=== PATIENT | female | born 1965 | race Caucasian/White ===

== ENCOUNTER 2018-01-14 13:04 | Emergency (ER) | payer OTHER ==
[2018-01-14 13:45] VITALS: TEMP 97.5
[2018-01-14] MEDS ORDERED: METOCLOPRAMIDE 10 MG TAB PO STA (14:58)
[2018-01-14] MEDS ORDERED: MECLIZINE 12.5 MG TAB PO STA (14:58)
--- NOTE | 2018-01-14 15:01 | ED ---
General Adult HPI - General Chief complaint: Dizziness Stated complaint: dizziness Time Seen by Provider: 01/14/18 14:41 Source: patient, RN notes reviewed Mode of arrival: ambulatory Limitations: no limitations - History of Present Illness Initial comments: Patient is a pleasant 52-year-old female presenting to the emergency department with dizziness. Dizziness is described as spinning type sensation. Patient had sudden onset last night. Symptoms improved while lying down in bed however when she got up to use the restroom symptoms return. Symptoms were present again this morning when she got up. Patient then vomited and symptoms are essentially resolved since that time. Patient only has minimal lightheadedness at this time. Patient denies ever having any headache at all. No history of similar symptoms previously. No confusion or speech problems. No weakness. No sinus or ear problems. - Related Data Home Medications Medication Instructions Recorded Confirmed Clopidogrel [Plavix] 75 mg PO DAILY 12/06/14 01/14/18 Aspirin 81 mg PO HS 05/01/15 01/14/18 Ascorbic Acid [Vitamin C] 500 mg PO DAILY 01/14/18 01/14/18 Ergocalciferol (Vitamin D2) 50,000 unit PO Q30D 01/14/18 01/14/18 [Vitamin D2] Losartan Potassium [Cozaar] 25 mg PO DAILY 01/14/18 01/14/18 Metoprolol Tartrate [Lopressor] 12.5 mg PO BID 01/14/18 01/14/18 Previous Rx's Medication Instructions Recorded Meclizine [Antivert] 25 mg PO TID PRN #12 tab 01/14/18 Metoclopramide HCl [Reglan] 10 mg PO Q6HR PRN #15 tablet 01/14/18 Allergies Allergy/AdvReac Type Severity Reaction Status Date / Time No Known Allergies Allergy Verified 01/14/18 15:00 Review of Systems ROS Statement: Those systems with pertinent positive or pertinent negative responses have been documented in the HPI. ROS Other: All systems not noted in ROS Statement are negative. Constitutional: Denies: fever Eyes: Denies: eye pain ENT: Denies: ear pain Respiratory: Denies: cough Cardiovascular: Denies: chest pain Endocrine: Denies: fatigue Gastrointestinal: Reports: nausea Genitourinary: Denies: dysuria Musculoskeletal: Denies: back pain Skin: Denies: rash Neurological: Reports: vertigo. Denies: headache, weakness, numbness, paresthesias, confusion Past Medical History Past Medical History: Coronary Artery Disease (CAD), Myocardial Infarction (DC) Additional Past Medical History / Comment(s): arthritis in knees- History of Any Multi-Drug Resistant Organisms: None Reported Past Surgical History: Appendectomy, Cholecystectomy, Heart Catheterization With Stent, Orthopedic Surgery, Tubal Ligation Additional Past Surgical History / Comment(s): chetna knee arthrocopy,uterine ablation Past Psychological History: No Psychological Hx Reported Smoking Status: Never smoker Past Alcohol Use History: None Reported Past Drug Use History: None Reported - Past Family History Father Additional Family Medical History / Comment(s): MOUTH Mother Additional Family Medical History / Comment(s): LUNG General Exam Limitations: no limitations General appearance: alert, in no apparent distress Head exam: Present: atraumatic Eye exam: Present: normal appearance, PERRL, EOMI. Absent: nystagmus ENT exam: Present: normal oropharynx, TM's normal bilaterally Neck exam: Present: normal inspection Respiratory exam: Present: normal lung sounds bilaterally Cardiovascular Exam: Present: regular rate, normal rhythm GI/Abdominal exam: Present: soft. Absent: tenderness Extremities exam: Present: other (Right proximal lateral calf with small area of swelling and firmness consistent with superficial thrombosis) Neurological exam: Present: alert, oriented X3, CN II-XII intact. Absent: motor sensory deficit Expanded Neurological exam: Present: protecting the airway Speech: Present: fluid speech Cranial nerves: EOM's Intact: Normal, Facial Sensation: Normal Cerebellar function: Finger to Nose: Normal Sensory exam: Upper Extremity Light Touch: Normal, Lower Extremity Light Touch: Normal Motor strength exam: RUE: 5, LUE: 5, RLE: 5, LLE: 5 Eye Response: (4) open spontaneously Motor Response: (6) obeys commands Verbal Response: (5) oriented Psychiatric exam: Present: normal affect, normal mood Skin exam: Present: normal color Course Vital Signs 01/14/18 13:41 Temperature 97.5 F L Pulse Rate 78 Respiratory 18 Rate Blood Pressure 125/67 O2 Sat by Pulse 98 Oximetry EKG Findings - EKG Comments: EKG Findings:: Normal sinus rhythm at 65. NH 150. QRS 84. QT 418. QTC 434. Normal axis. Normal QRS. No acute ST change. Medical Decision Making - Medical Decision Making Patient reevaluated and resting comfortably in bed. plaints at this time. Patient is updated on results and need for follow-up. Also updated on need for repeat ultrasound. - Radiology Data Radiology results: image reviewed (Computed tomography scan of the brain shows no acute process. Ultrasound negative for DVT, likely hematoma is present.) Disposition Clinical Impression: Vertigo Disposition: HOME SELF-CARE Condition: Stable Instructions: Dizziness (ED) Additional Instructions: Please follow-up with your doctor in the next day or 2 for recheck. Have your doctor review report today and U will need to repeat ultrasound in the future. Return for weakness, confusion, speech problems, increased dizziness, worsening symptoms or other concerns. [id number] Antivert as needed. Prescriptions: Meclizine [Antivert] 25 mg PO TID PRN #12 tab PRN Reason: dizziness Metoclopramide HCl [Reglan] 10 mg PO Q6HR PRN #15 tablet PRN Reason: Nausea Referrals: Meño Mcgarry DO [Primary Care Provider] - 1-2 days Time of Disposition: 17:35
--- NOTE | 2018-01-14 16:10 | CT ---
EXAMINATION TYPE: CT brain wo con DATE OF EXAM: 01/14/2018 COMPARISON: NONE HISTORY: Patient complains of dizziness, nausea, and vomiting. CT DLP: 780.2 mGycm. Automated Exposure Control for Dose Reduction was Utilized. TECHNIQUE: CT scan of the head is performed without contrast. FINDINGS: There is no acute intracranial hemorrhage, mass effect, or midline shift identified. No suspicious extra-axial fluid collection. The ventricles and sulci are within normal limits in size. The globes are intact and the visualized sinuses are clear. Frontal sinuses are noted to be hypoplast ic. IMPRESSION: No acute intracranial hemorrhage, mass effect, or midline shift is seen.
--- NOTE | 2018-01-14 16:42 | US ---
EXAMINATION TYPE: US venous doppler duplex LE RT DATE OF EXAM: 01/14/2018 4:23 PM COMPARISON: NONE CLINICAL HISTORY: Pain. SIDE PERFORMED: Right TECHNIQUE: The lower extremity deep venous system is examined utilizing real time linear array sonog marium with graded compression, doppler sonography and color-flow sonography. VESSELS IMAGED: External Iliac Vein (EIV) Common Femoral Vein Deep Femoral Vein Greater Saphenous Vein * Femoral Vein Popliteal Vein Small Saphenous Vein * Proximal Calf Veins (* superficial vessels) Right Leg: Negative for DVT At right pop fossa is a 1.0 x 0.5 cm avascular, hypoechoic ovoid structure. It is quite lateral and d oes not the typical appearance or location of a Bakers cyst. The area is palpable and looks like a br uise on the surface. Grayscale, color doppler, spectral doppler imaging performed of the deep veins of the lower extremiti es. There is normal flow, compressibility, vascular waveforms. IMPRESSION: 1. No evidence of deep venous arthrosis within the right lower extremity. 2. Hypoechoic avascular area deep to a ecchymosis within the popliteal fossa. This likely represents a hematoma, however short-term follow-up is recommended in 6 weeks to ensure resolution.
[2018-01-14 17:52] VITALS: BP 104/65; PULSE 88; RESP 16
== END 2018-01-14 17:51 | disposition home or self-care (01) ==
LOC: EC 13:04
DX: R42 Dizziness and giddiness (principal); M79.89 Other specified soft tissue disorders; I25.10 Atherosclerotic heart disease of native coronary artery without angina pectoris; M17.0 Bilateral primary osteoarthritis of knee; I25.2 Old myocardial infarction; Z79.02 Long term (current) use of antithrombotics/antiplatelets; Z79.82 Long term (current) use of aspirin; Z79.899 Other long term (current) drug therapy
CPT/HCPCS: 70450; 93005; 99284

== ENCOUNTER → 2018-03-15 | Outpatient (CLI) | payer OTHER ==
[2018-03-15 08:10] LABS: HCT 40.9 % (34.0-46.0); HGB 13.5 gm/dL (11.4-16.0); MCH 28.1 pg (25.0-35.0); MCV 85.1 fL (80.0-100.0); Mean Platelet Volume 8.3; Platelet Count 201 k/uL (150-450); RBC 4.81 m/uL (3.80-5.40); RDW 14.6 % (11.5-15.5); WBC 5.9 k/uL (3.8-10.6)
[2018-03-15 08:17] LABS: Appearance,Urine Cloudy (Clear); Bacteria,Urine Rare /hpf; Bilirubin,Urine Negative (Negative); Blood,Urine Negative (Negative); Color,Urine Yellow; Glucose,Urine (UA) Negative (Negative); Hyaline Casts,Urine 1 /lpf (0-2); Ketones,Urine 2+ (Negative); Leukocyte Esterase,Urine Large (Negative); Mucus,Urine Rare /hpf; Nitrite,Urine Negative (Negative); Protein,Urine Negative (Negative); Prothrombin Time 9.7 sec (9.0-12.0); RBC,Urine 3 /hpf (0-5); Specific Gravity,Urine 1.019 (1.001-1.035); Squamous Epithelial Cell,Urine 7 /hpf (0-4); Urobilinogen,Urine <2.0 mg/dL (<2.0); WBC,Urine 24 /hpf (0-5)
[2018-03-15 08:18] LABS: Partial Thromboplastin Time 23.8 sec (22.0-30.0)
[2018-03-15 08:32] LABS: ALT 39 U/L (9-52); AST 19 U/L (14-36); Albumin 4.3 g/dL (3.5-5.0); Alkaline Phosphatase 64 U/L (38-126); Anion Gap 15 mmol/L; Blood Urea Nitrogen 14 mg/dL (7-17); Calcium 9.6 mg/dL (8.4-10.2); Carbon Dioxide 26 mmol/L (22-30); Chloride 103 mmol/L (98-107); Glucose 142 mg/dL (74-99); Potassium 4.1 mmol/L (3.5-5.1); Sodium 144 mmol/L (137-145); Total Bilirubin 0.4 mg/dL (0.2-1.3); Total Protein 6.9 g/dL (6.3-8.2)
== END ==
LOC: LABWHC1 07:33
PROVIDERS: ATTEND Orthopaedic Surgery
DX: Z01.812 Encounter for preprocedural laboratory examination (principal)
CPT/HCPCS: 36415; 80053; 81001; 85027; 85610; 85730; 87070

== ENCOUNTER → 2018-12-23 | Outpatient (CLI) | payer OTHER | END | disposition home or self-care (01) | LOC: LABPAT 09:38 | PROVIDERS: ATTEND Obstetrics & Gynecology | DX: Z53.9 Procedure and treatment not carried out, unspecified reason (principal) ==

== ENCOUNTER 2019-05-02 05:43 | Inpatient (IN) | payer OTHER ==
[2019-04-20 10:52] VITALS: BMI 30.1
[~2019-05-02 05:43] MED LIST: DEXAMETHASONE SOD PHOSPHATE 10 MG/ML 1 ML VIAL IV ONE; LACTATED RINGERS 1,000 ML IV SCH; LIDOCAINE 1% 20 ML VIAL (10MG/ML) FOR IV START INTRADERMA PRN; ONDANSETRON 4 MG/2 ML VIAL IVP ONE; ceFAZolin IN SWFI 2 GM/20 ML SYRINGE IVP ONE
[2019-05-02 06:11] LABS: Glucose,Whole Blood 94 mg/dL (75-99)
[2019-05-02] MEDS ORDERED: LACTATED RINGERS 1,000 ML IV ONE ×2 (06:12→06:13)
--- NOTE | 2019-05-02 06:46 | P.HPOB ---
History of Present Illness H&P Date: 05/02/19 Chief Complaint: pelvic organ prolapse 53 year old presents for total laparoscopic hysterectomy bilateral salpingo-oophorectomy with da Edward and anterior/posterior repair. Review of Systems All systems: negative Constitutional: Denies chills, Denies fever Eyes: denies blurred vision, denies pain Ears, nose, mouth and throat: Denies headache, Denies sore throat Cardiovascular: Denies chest pain, Denies shortness of breath Respiratory: Denies cough Gastrointestinal: Denies abdominal pain, Denies diarrhea, Denies nausea, Denies vomiting Genitourinary: Denies dysuria, Denies hematuria Musculoskeletal: Denies myalgias Integumentary: Denies pruritus, Denies rash Neurological: Denies numbness, Denies weakness Psychiatric: Denies anxiety, Denies depression Endocrine: Denies fatigue, Denies weight change Past Medical History Past Medical History: Coronary Artery Disease (CAD), Cancer, Diabetes Mellitus, Myocardial Infarction (CT), Osteoarthritis (OA) Additional Past Medical History / Comment(s): bladder prolapse,rt breast CA- received 33 radiation tx's-last radiation tx 04-06-2019-skin healed,hx arthritis chetna knees Last Myocardial Infarction Date:: 2009 History of Any Multi-Drug Resistant Organisms: None Reported Past Surgical History: Appendectomy, Breast Surgery, Cholecystectomy, Heart Catheterization With Stent, Orthopedic Surgery, Tubal Ligation, Uterine Ablation Additional Past Surgical History / Comment(s): rt knee replacement,chetna knee arthroscopy,lumpectomy with 2-3 lymphnodes removed rt breast Past Anesthesia/Blood Transfusion Reactions: No Reported Reaction Date of Last Stent Placement:: 2009 Smoking Status: Never smoker - Past Family History Brother(s) History Unknown: Yes (Thyroid and hyperlipidemia) Family Medical History: Hypertension Sister(s) History Unknown: Yes Father Family Medical History: Cancer (Oral) Additional Family Medical History / Comment(s): MOUTH Mother Family Medical History: Cancer Additional Family Medical History / Comment(s): LUNG Medications and Allergies Home Medications Medication Instructions Recorded Confirmed Type Ergocalciferol (Vitamin D2) 50,000 unit PO Q7D 01/14/18 05/02/19 History [Vitamin D2] Aspirin 81 mg PO HS #0 03/30/18 05/02/19 Rx Anastrozole [Arimidex] 1 mg PO DAILY 04/20/19 05/02/19 History Dandelion Root 4 cap PO DAILY 04/20/19 05/02/19 History Allergies Allergy/AdvReac Type Severity Reaction Status Date / Time No Known Allergies Allergy Verified 05/02/19 06:04 Exam Osteopathic Statement: *. No significant issues noted on an osteopathic structural exam other than those noted in the History and Physical/Consult. Vital Signs Temp Pulse Resp BP Pulse Ox 05/02/19 06:06 97.2 F L 74 17 146/67 99 Intake and Output 05/01/19 05/01/19 05/02/19 14:59 22:59 06:59 Other: Weight 97.8 kg Heart: Regular rate and rhythm Lungs: Clear to auscultation bilaterally Abdomen: Soft, nontender Extremities: Negative Homans sign Assessment and Plan (1) Pelvic organ prolapse quantification stage 2 cystocele Current Visit: Yes Status: Acute Code(s): N81.10 - CYSTOCELE, UNSPECIFIED SNOMED Code(s): 820577015 Plan: 1. [facility] BSO with da edward, cystocele and rectocele repair, and diagnostic cystoscopy
[2019-05-02] MEDS ORDERED: MIDAZOLAM 2 MG/2 ML VIAL ONE (07:26)
[2019-05-02] MEDS ORDERED: ROCURONIUM BROMIDE 10 MG/ML 10 ML VIAL IV ONE (07:26)
[2019-05-02] MEDS ORDERED: fentaNYL (PF) 50 MCG/ML 2 ML AMP ONE (07:26)
[2019-05-02] MEDS ORDERED: NEOSTIGMINE 1 MG/ML 10 ML VIAL ONE (07:26)
[2019-05-02] MEDS ORDERED: GLYCOPYRROLATE 0.2 MG/ML 2 ML VIAL ONE (07:26)
[2019-05-02] MEDS ORDERED: PROPOFOL 10 MG/ML 20 ML VIAL IV ONE (07:26)
[2019-05-02] MEDS ORDERED: LIDOCAINE 1% INJ 10MG/ML (20 ML MDV) ONE (07:26)
[2019-05-02] MEDS ORDERED: SUCCINYLCHOLINE CHLORIDE 100 MG/5 ML SYR IV ONE (07:26)
[2019-05-02] MEDS ORDERED: BUPIVACAINE (PF) 0.25% 30 ML VIAL SQ ONE (08:31)
[2019-05-02] MEDS ORDERED: VASOPRESSIN 20 UNIT/ML 1 ML VIAL IM ONE (08:41)
--- NOTE | 2019-05-02 09:38 | P.OP ---
Date of Procedure: 05/02/19 Preoperative Diagnosis: 1. Pelvic organ prolapse with grade 2 cystocele, rectocele Postoperative Diagnosis: 1. Pelvic organ prolapse with grade 2 cystocele, rectocele Procedure(s) Performed: Total laparoscopic hysterectomy, bilateral salpingo-oophorectomy with da Laureano, anterior and posterior repair, diagnostic cystoscopy Anesthesia: JD Surgeon: Sharon Louie Binding Machine Operator #1: Isaac Mendoza Estimated Blood Loss (ml): 20 IV fluids (ml): 800 Urine output (ml): 1,100 Pathology: other (Uterus with cervix, fallopian tubes, ovaries, vaginal mucosa) Condition: stable Disposition: PACU Operative Findings: There was a simple cyst on the left ovary, normal-appearing uterus and fallopian tubes, uterine descensus with grade 2 cystocele and grade 2 rectocele. Description of Procedure: Patient taken the operating room where general anesthesia was obtained without difficulty. She is prepped and draped in normal sterile fashion dorsal lithotomy position, legs placed in the Reynaldo stirrups. Weighted speculum placed in the vagina and the anterior lip the cervix was grasped with single-tooth tenaculum. The uterus sounded to 6 cm and the cervix diameter was 3.5 cm. The appropriate manipulator tip and ring were placed on the Bre manipulator. The Bre manipulator was then placed in the uterus. Lira catheter was also placed. Attention was then turned to the abdomen and gloves were changed. A 5 mm supraumbilical incision was made the scalpel and a 5 mm optical trocar was placed under direct visualization. 10 cm to the right of this and 2 cm down a 5 mm incision was made and 8 mm da Laureano port was placed under direct visualization. Same measurements on the opposite side of the patient's abdomen, the 5 mm incision was made and 8 mm da Laureano port was placed under direct visualization. In the left upper quadrant a 10 mm incision was made and a 10 mm optical trocar was placed under direct visualization. The 5 mm optical trocar was then replaced with the 8 mm da Laureano camera port. The robot was docked on patient's right side. The camera was introduced and then the monopolar curved scissor and [place] bipolar placed under direct visualization. I broke scrub and went to the physician console. The left infundibulopelvic ligament was cauterized with the [place] bipolar and cut with monopolar curved scissors. The left round ligament was cauterized with the [place] bipolar and cut with monopolar curved scissors. The posterior leaf of the broad ligament was taken down using the monopolar curved scissors. Anterior leaf of the broad ligament was then taken down using the monopolar curved scissors. The uterine artery was cauterized with the [place] bipolar and cut with monopolar curved scissors. The bladder flap was then started using the monopolar curved scissors. Attention was then turned to the right side of the patient's anatomy and the right infundibular pelvic ligament was cauterized with the [place] bipolar and cut with monopolar curved scissors. The right round ligament was cauterized with the [place] bipolar and cut with monopolar curved scissors. Posterior leaf of the broad ligament was taken down using the monopolar curved scissors and the anterior leaf was taken down using the monopolar curved scissors. The uterine artery was cauterized the [place] bipolar cut with monopolar curved scissors. The bladder flap was then finished on this side. Anterior colpotomy was made using the monopolar curved scissors. The rest of the uterus was from the vaginal cuff by following the ring around with the monopolar curved scissors through the uterosacral ligaments back to the anterior portion. Once the uterus and cervix were amputated they were pulled through the vaginal cuff. Hemostasis was assured. The instruments were changed for the Cardier forcep and the chalo suture cut. The vaginal cuff was then closed using O stratafix barbed suture in a running fashion. Hemostasis was again assured and the pelvis was irrigated. All instruments were removed from the abdomen and the robot was undocked. The abdominal incisions were closed with 4-0 Vicryl in a subcuticular fashion. I scrubbed back in to perform the anterior posterior repair. First the anterior mucosa was grasped with Allis clamps and the mucosa was infiltrated with diluted vasopressin. An incision was made and the underlying fascia was dissected off the vaginal mucosa. Linda plication stitches were placed. The excess vaginal mucosa was trimmed and then closed with 0 Vicryl in a running locked fashion. Hemostasis was assured. The posterior vaginal mucosa was grasped with Allis clamps and this mucosa was infiltrated with diluted vasopressin. An incision was made and the underlying fascia was dissected off the posterior vaginal mucosa. Linda plication stitches were placed. The perineal body was built up with 2 stitches. The excess vaginal mucosa was trimmed and then closed with 0 Vicryl in a running locked fashion. Excellent hemostasis was seen. I then performed a cystoscopy and saw ureteral jets from both orifices. Patient tolerated the procedure well, sponge and instrument counts correct 2 and she was taken to recovery room in stable condition condition
[2019-05-02] MEDS: HYDROmorphone 1 MG/ML 1 ML SYRINGE IVP ONE ×2 (10:03→10:12)
[2019-05-02] MEDS ORDERED: KETOROLAC 30 MG/ML 1 ML VIAL IVP ONE (10:12)
[2019-05-02] MEDS ORDERED: SIMETHICONE 80 MG CHEWABLE PO PRN (10:55)
[2019-05-02] MEDS ORDERED: Acetaminophen-Codeine 300-30mg TAB PO PRN ×2 (10:55)
[2019-05-02] MEDS ORDERED: IBUPROFEN 600 MG TAB PO PRN (10:55)
[2019-05-02] MEDS ORDERED: ZOLPIDEM 5 MG TAB PO PRN (10:55)
[2019-05-02] MEDS ORDERED: ONDANSETRON 4 MG/2 ML VIAL IVP PRN (10:55)
[2019-05-02] MEDS ORDERED: METOCLOPRAMIDE 5 MG/ML 2 ML VIAL IVP PRN (10:55)
--- NOTE | 2019-05-02 13:54 | P.PN ---
Progress Note - Text Progress Note Date: 05/02/19 53 years old female, that's post robotic hysterectomy under general endotracheal anesthesia, patient postop was complaining of right side pain, and increased teares, there is no redness, no discharge, clinical exam, fit the criteria for corneal abrasion, Voltaren 1% eye drops, one drop every 6 hours ordered, and we will consult ophthalmology for further recommendation.
[2019-05-02] MEDS: DICLOFENAC 0.1% OPHTH SOLN 2.5 ML BTL RIGHT EYE SCH ×3 (14:37→22:32)
[2019-05-02] MEDS: ERYTHROMYCIN 5 MG/GM OPHTH OINT 3.5 GM TUBE RIGHT EYE SCH (15:07)
[2019-05-02] MEDS ORDERED: HEPARIN SODIUM,PORCINE 5,000 UNIT/ML 1 ML VIAL SQ SCH (16:00)
[2019-05-02] MEDS: KETOROLAC 30 MG/ML 1 ML VIAL IVP PRN (17:55)
[2019-05-02] MEDS: SENNOSIDES-DOCUSATE SODIUM 1 EACH TAB PO SCH (20:35)
[2019-05-02] MEDS ORDERED: ANASTROZOLE 1 MG TAB PO SCH (21:00)
[2019-05-03] MEDS: ERYTHROMYCIN 5 MG/GM OPHTH OINT 3.5 GM TUBE RIGHT EYE SCH ×2 (00:01→07:24)
[2019-05-03 07:12] LABS: Basophils % (A) 0 %; Eosinophils # (A) 0.1 k/uL (0-0.7); Eosinophils % (A) 2 %; HCT 34.5 % (34.0-46.0); HGB 11.2 gm/dL (11.4-16.0); Lymphocytes # (A) 1.2 k/uL (1.0-4.8); Lymphocytes % (A) 23 %; MCH 28.9 pg (25.0-35.0); MCHC 32.5 g/dL (31.0-37.0); MCV 88.9 fL (80.0-100.0); Mean Platelet Volume 7.8; Monocytes # (A) 0.3 k/uL (0-1.0); Monocytes % (A) 5 %; Neutrophils # (A) 3.4 k/uL (1.3-7.7); Neutrophils % (A) 68 %; Platelet Count 146 k/uL (150-450); RBC 3.89 m/uL (3.80-5.40); RDW 14.1 % (11.5-15.5)
[2019-05-03] MEDS: SENNOSIDES-DOCUSATE SODIUM 1 EACH TAB PO SCH (07:22)
[2019-05-03] MEDS: KETOROLAC 30 MG/ML 1 ML VIAL IVP PRN ×2 (07:23)
[2019-05-03] MEDS: DICLOFENAC 0.1% OPHTH SOLN 2.5 ML BTL RIGHT EYE SCH ×2 (08:28→14:01)
[2019-05-03 08:31] VITALS: BP 133/66; PULSE 71; RESP 18; TEMP 96.7
[2019-05-03] MEDS ORDERED: DANDELION ROOT PO SCH (09:00)
--- NOTE | 2019-05-04 08:03 | P.DS ---
Providers Date of admission: 05/02/19 05:43 Expected date of discharge: 05/04/19 Attending physician: Sharon Louie Consults: 05/02/19 13:46 Consult Physician Routine Consulting Provider: Dheeraj Wu Consult Reason/Comments: corneal abrasion Do you want consulting provider notified?: Yes Primary care physician: Meño Mcgarry - Discharge Diagnosis(es) (1) Pelvic organ prolapse quantification stage 2 cystocele Status: Acute (2) Status post robot-assisted surgical procedure Status: Acute Hospital Course: Patient presented for TLHBSO and anterior posterior repair. She underwent this procedure using da Laureano without complications. Postoperatively she was having some pain in the right eye and initially thought there was something in her eye. It's possible that she does have a small corneal abrasion. She is placed on erythromycin eyedrops and though ophthalmology was consult tented, they were going to be here for over 24 hours and she was ready to be discharged. She'll follow-up with ophthalmology outpatient. Her pain is well-controlled, she is voiding and ambulating without difficulty, passing flatus and tolerating regular diet. Her incisions are clean, dry, intact. She will be discharged home postoperative day #1 to follow-up with me in 3 weeks. Patient Condition at Discharge: Good Plan - Discharge Summary Discharge Rx Participant: Yes New Discharge Prescriptions: New Ibuprofen [Motrin] 600 mg PO Q6HR PRN #30 tab PRN Reason: Mild Discomfort Acetaminophen-Codeine 300-30mg [Tylenol w/codeine #3] 1 - 2 each PO Q6HR PRN #20 tab PRN Reason: Severe Pain No Action Ergocalciferol (Vitamin D2) [Vitamin D2] 50,000 unit PO Q7D Aspirin 81 mg PO HS #0 Anastrozole [Arimidex] 1 mg PO DAILY Dandelion Root 4 cap PO DAILY Discharge Medication List Ergocalciferol (Vitamin D2) [Vitamin D2] 50,000 unit PO Q7D 01/14/18 [History] Aspirin 81 mg PO HS #0 03/30/18 [Rx] Anastrozole [Arimidex] 1 mg PO DAILY 04/20/19 [History] Dandelion Root 4 cap PO DAILY 04/20/19 [History] Acetaminophen-Codeine 300-30mg [Tylenol w/codeine #3] 1 - 2 each PO Q6HR PRN #20 tab 05/03/19 [Rx] Ibuprofen [Motrin] 600 mg PO Q6HR PRN #30 tab 05/03/19 [Rx] Follow up Appointment(s)/Referral(s): Sharon Louie DO [Doctor of Osteopathic Medicine] - 3 Weeks Discharge Disposition: HOME SELF-CARE
[2019-05-04] MEDS ORDERED: ERGOCALCIFEROL 50,000 UNIT CAP PO SCH (09:00)
== END 2019-05-03 14:45 | disposition home or self-care (01) | DRG 743 ==
LOC: 2ORMAIN 05:43 → 4FBP 09:37
PROVIDERS: ADMIT Obstetrics & Gynecology; ATTEND Obstetrics & Gynecology
PROC: 0UT24ZZ Resection of Bilateral Ovaries, Percutaneous Endoscopic Approach (ICD-10-PCS; 2019-05-02)
PROC: 0JQC0ZZ Repair Pelvic Region Subcutaneous Tissue and Fascia, Open Approach (ICD-10-PCS; 2019-05-02)
PROC: 8E0W4CZ Robotic Assisted Procedure of Trunk Region, Percutaneous Endoscopic Approach (ICD-10-PCS; 2019-05-02)
PROC: 0TJB8ZZ Inspection of Bladder, Via Natural or Artificial Opening Endoscopic (ICD-10-PCS; 2019-05-02)
PROC: 0UT94ZZ Resection of Uterus, Percutaneous Endoscopic Approach (ICD-10-PCS; principal; 2019-05-02 07:15)
PROC: 0UTC4ZZ Resection of Cervix, Percutaneous Endoscopic Approach (ICD-10-PCS; 2019-05-02 07:15)
PROC: 0UT74ZZ Resection of Bilateral Fallopian Tubes, Percutaneous Endoscopic Approach (ICD-10-PCS; 2019-05-02 07:15)
DX: N81.2 Incomplete uterovaginal prolapse (principal); E11.9 Type 2 diabetes mellitus without complications; N83.292 Other ovarian cyst, left side; S05.00XA Injury of conjunctiva and corneal abrasion without foreign body, unspecified eye, initial encounter; I25.10 Atherosclerotic heart disease of native coronary artery without angina pectoris; I25.2 Old myocardial infarction; M19.90 Unspecified osteoarthritis, unspecified site; Z79.811 Long term (current) use of aromatase inhibitors; Z79.82 Long term (current) use of aspirin; Z79.899 Other long term (current) drug therapy; Z85.3 Personal history of malignant neoplasm of breast; Z96.651 Presence of right artificial knee joint; Z92.3 Personal history of irradiation; Z90.49 Acquired absence of other specified parts of digestive tract; Z95.5 Presence of coronary angioplasty implant and graft; Z98.51 Tubal ligation status; Z82.49 Family history of ischemic heart disease and other diseases of the circulatory system; Z83.49 Family history of other endocrine, nutritional and metabolic diseases; Z80.8 Family history of malignant neoplasm of other organs or systems; Z80.1 Family history of malignant neoplasm of trachea, bronchus and lung
CPT/HCPCS: 85025; 86850; 86900; 86901; 88302; 88307

== ENCOUNTER → 2019-08-03 | Outpatient (CLI) | payer OTHER ==
[2019-08-03 19:38] LABS: ALT 15 U/L (8-44); AST 19 U/L (13-35); Chol/HDL Ratio 2.25; Cholesterol 146 mg/dL (0-200); Triglycerides <50.0 mg/dL (0.0-149.0)
== END | disposition home or self-care (01) ==
LOC: LABWHC1 11:25
PROVIDERS: ATTEND Internal Medicine Cardiovascular Disease
DX: E78.2 Mixed hyperlipidemia (principal)
CPT/HCPCS: 36415; 80061; 84450; 84460

== ENCOUNTER → 2020-04-20 | Outpatient (CLI) | payer OTHER ==
[2020-04-20 12:45] LABS: Basophils # (A) 0.1 k/uL (0-0.2); Basophils % (A) 1 %; Eosinophils # (A) 0.2 k/uL (0-0.7); Eosinophils % (A) 3 %; HCT 40.8 % (34.0-46.0); HGB 13.1 gm/dL (11.4-16.0); Lymphocytes # (A) 1.3 k/uL (1.0-4.8); Lymphocytes % (A) 20 %; MCH 27.7 pg (25.0-35.0); MCHC 32.1 g/dL (31.0-37.0); MCV 86.3 fL (80.0-100.0); Mean Platelet Volume 8.1; Monocytes # (A) 0.2 k/uL (0-1.0); Monocytes % (A) 4 %; Neutrophils # (A) 4.4 k/uL (1.3-7.7); Neutrophils % (A) 71 %; Platelet Count 201 k/uL (150-450); RBC 4.73 m/uL (3.80-5.40); RDW 14.1 % (11.5-15.5); WBC 6.2 k/uL (3.8-10.6)
[2020-04-20 19:22] LABS: African American GFR (CKD) 112.3 (60.0-200.0); Albumin 4.6 g/dL (3.80-4.90); Anion Gap 8.5 mmol/L (4.00-12.00); Calcium 9.7 mg/dL (8.7-10.3); Carbon Dioxide 27.5 mmol/L (21.6-31.8); Non-African American GFR(CKD) 96.9 (60.0-200.0); Potassium 4.1 mmol/L (3.5-5.5)
[2020-04-20 21:19] LABS: Hemoglobin A1C 5.5 % (4.0-6.0)
== END | disposition home or self-care (01) ==
LOC: LABWHC1 11:56
PROVIDERS: ATTEND Orthopaedic Surgery
DX: Z01.89 Encounter for other specified special examinations (principal)
CPT/HCPCS: 36415; 80048; 82040; 82306; 82985; 83036; 84134; 84466; 85025; 86850; 86900; 86901; 87070

== ENCOUNTER → 2020-04-30 | Outpatient (CLI) | payer OTHER ==
--- NOTE | 2020-04-30 14:36 | XR ---
Left hip HISTORY: Left hip pain 2 views the left hip There are small ossific densities at the level of the acetabular labrum which may represent chondroca lcinosis, possible unfused apophysis, remote injury. Joint spaces and alignment are maintained. No ac tanana fracture or dislocation is evident. Bone mineralization is also maintained. IMPRESSION: Findings of the labrum as described. No acute finding evident. Hip MRI may be of benefit.
--- NOTE | 2020-04-30 14:37 | XR ---
Left shoulder HISTORY: Left shoulder pain 3 views of the left shoulder Bone mineralization, joint spaces and alignment are maintained. Left lung apex as visualized is danial l. Calcification present at the level of the humeral head may be within the rotator cuff tendon. Ther e are overlying artifacts. No fracture or dislocation. IMPRESSION: There may be calcific tendinitis.
== END | disposition home or self-care (01) ==
LOC: RADXRMAIN 13:21
PROVIDERS: ATTEND Family Medicine
DX: M25.512 Pain in left shoulder (principal); M25.552 Pain in left hip
CPT/HCPCS: 73502

== ENCOUNTER → 2020-08-28 | Outpatient (CLI) | payer OTHER | END | disposition home or self-care (01) | LOC: LABWHC1 08:35 | PROVIDERS: ATTEND Orthopaedic Surgery | DX: T56.91XA Toxic effect of unspecified metal, accidental (unintentional), initial encounter (principal); M25.561 Pain in right knee | CPT/HCPCS: 36415; 85652; 86140 ==

== ENCOUNTER → 2020-10-12 | Outpatient (CLI) | payer OTHER ==
--- NOTE | 2020-10-12 15:13 | XR ---
EXAMINATION TYPE: XR chest 2V DATE OF EXAM: 10/12/2020 COMPARISON: 08/23/2012 HISTORY: Shortness of breath TECHNIQUE: Frontal and lateral views of the chest are obtained. FINDINGS: Scattered senescent parenchymal changes noted. Hyperinflation compatible with COPD. No evidence for infiltrate. No evidence for atelectasis. Heart size is stable. Mediastinal structures are stable and grossly unremarkable. No evidence for hilar prominence. Degenerative changes dorsal spine. IMPRESSION: 1. No evidence for acute pulmonary disease.
--- NOTE | 2020-10-12 15:15 | XR ---
EXAMINATION TYPE: XR abdomen 1V DATE OF EXAM: 10/12/2020 COMPARISON: NONE HISTORY: Pain TECHNIQUE: Single supine KUB image of the abdomen is obtained FINDINGS: Small bowel demonstrates no evidence for dilatation or air fluid levels. Gas and fecal material is seen in non-distended colon. No convincing evidence for pneumoperitoneum. No unusual calcifications. The lung bases are clear. The osseous structures are intact. IMPRESSION: 1. Overall nonobstructive bowel gas pattern.
== END | disposition home or self-care (01) ==
LOC: RADXRMAIN 14:25
PROVIDERS: ATTEND Family Medicine
DX: R07.9 Chest pain, unspecified (principal); K59.00 Constipation, unspecified
CPT/HCPCS: 71046; 74018

== ENCOUNTER → 2020-12-03 | Outpatient (CLI) | payer OTHER ==
[2020-12-03 14:38] LABS: Basophils # (A) 0.05 X 10*3/uL (0.00-0.10); Eosinophils # (A) 0.13 X 10*3/uL (0.04-0.35); Eosinophils % (A) 2.6 %; HCT 39.6 % (37.2-46.3); HGB 12.7 g/dL (12.0-15.0); Lymphocytes # (A) 1.37 X 10*3/uL (0.90-5.00); MCH 27.6 pg (27.0-32.0); MCHC 32.1 g/dL (32.0-37.0); MCV 86.1 fL (80.0-97.0); Mean Platelet Volume 10.9 fL (9.5-12.2); Monocytes # (A) 0.29 X 10*3/uL (0.20-1.00); Monocytes % (A) 5.7 %; Neutrophils # (A) 3.22 X 10*3/uL (1.80-7.70); Neutrophils % (A) 63.3 %; Platelet Count 229 X 10*3/uL (140-440); RDW 14.1 % (11.5-14.5); WBC 5.08 X 10*3/uL (4.50-10.00)
[2020-12-03 17:50] LABS: Hemoglobin A1C 6.6 % (4.0-6.0)
[2020-12-03 18:48] LABS: African American GFR (CKD) 111.5 (60.0-200.0); Albumin 4.8 g/dL (3.80-4.90); Anion Gap 10.1 mmol/L (4.00-12.00); BUN/Creat Ratio 17.14 Ratio (12.00-20.00); Calcium 9.1 mg/dL (8.7-10.3); Carbon Dioxide 22.9 mmol/L (21.6-31.8); Non-African American GFR(CKD) 96.2 (60.0-200.0); Potassium 4.2 mmol/L (3.5-5.5)
== END | disposition home or self-care (01) ==
LOC: LABWHC1 09:57
PROVIDERS: ATTEND Orthopaedic Surgery
DX: Z01.89 Encounter for other specified special examinations (principal)
CPT/HCPCS: 36415; 80048; 82040; 82306; 82985; 83036; 84134; 84466; 85025; 86850; 86900; 86901; 87070

== ENCOUNTER 2021-01-15 19:37 | Emergency (ER) | payer OTHER ==
[2021-01-15] MEDS ORDERED: IPRATROPIUM-ALBUTEROL 3 ML NEB INHALATION STA (20:45)
--- NOTE | 2021-01-15 21:03 | ED ---
SOB HPI - General Chief Complaint: Shortness of Breath Stated Complaint: COVID+,STEPHAN Time Seen by Provider: 01/15/21 20:33 Source: patient Mode of arrival: wheelchair Limitations: no limitations - History of Present Illness Initial Comments: Is a 55-year-old female who has a history of CAD, diabetes who presents emergency department for worsening shortness of breath. The patient developed symptoms of loss of taste and smell approximately one week ago. She was tested for cold that about 5 days ago and found to be Covid Positive. She states over the last couple of days she's had worsening of cough and shortness of breath especially with exertion. She denies any chest pain. No nausea or vomiting. No diarrhea. She states that she's had some chills at home. She came in today because she is states that she has a pulse ox at home and it showed 91% area the patient did have a right total knee arthroplasty performed about 2 weeks ago. She states that she's been doing well with this. She states that she has not had any pain or swelling of the lower extremities since that time. Again no chest pains. No other acute complaints. - Related Data Home Medications Medication Instructions Recorded Confirmed Ergocalciferol (Vitamin D2) 50,000 unit PO SA 01/14/18 01/15/21 [Vitamin D2] Anastrozole [Arimidex] 1 mg PO HS 04/20/19 01/15/21 Acetaminophen [Tylenol] 500 - 1,000 mg PO TID PRN 01/15/21 01/15/21 Docusate [Colace] 100 mg PO DAILY PRN 01/15/21 01/15/21 oxyCODONE HCL [OxyIR] 5 mg PO Q4H PRN 01/15/21 01/15/21 Previous Rx's Medication Instructions Recorded Aspirin 81 mg PO HS #0 03/30/18 Allergies Allergy/AdvReac Type Severity Reaction Status Date / Time No Known Allergies Allergy Verified 01/15/21 21:24 Review of Systems ROS Statement: Those systems with pertinent positive or pertinent negative responses have been documented in the HPI. ROS Other: All systems not noted in ROS Statement are negative. Past Medical History Past Medical History: Coronary Artery Disease (CAD), Cancer, Diabetes Mellitus, Myocardial Infarction ([place]), Osteoarthritis (OA) Additional Past Medical History / Comment(s): arthritis in knees- Last Myocardial Infarction Date:: 2009 History of Any Multi-Drug Resistant Organisms: None Reported Past Surgical History: Appendectomy, Cholecystectomy, Heart Catheterization With Stent, Orthopedic Surgery, Tubal Ligation Additional Past Surgical History / Comment(s): chetna knee arthrocopy,uterine ablation Past Anesthesia/Blood Transfusion Reactions: No Reported Reaction Date of Last Stent Placement:: 2009 Past Psychological History: No Psychological Hx Reported Smoking Status: Never smoker Past Alcohol Use History: None Reported Past Drug Use History: None Reported - Past Family History Brother(s) History Unknown: Yes (Thyroid and hyperlipidemia) Family Medical History: Hypertension Sister(s) History Unknown: Yes Father Family Medical History: Cancer (Oral) Additional Family Medical History / Comment(s): MOUTH Mother Family Medical History: Cancer Additional Family Medical History / Comment(s): LUNG General Exam - General Exam Comments Initial Comments: Constitutional: Awake alert Appears comfortable Head: Normocephalic atraumatic Eyes: no conjunctival injection No scleral icterus EOMI Neck: No JVD Supple Heart: Regular rate rhythm normal S1-S2 no murmurs Lungs: Tachypnea Clear to auscultation bilaterally No wheezing No rales Abdomen: Soft nondistended nontender Extremities: Non edematous DP pulses intact Radial pulses intact, surgical wound appears clean and dry without running erythema or swelling Neuro: A&Ox3 No focal neurologic deficits Psych: Appropriate mood and affect Limitations: no limitations Course Vital Signs 01/15/21 01/15/21 01/15/21 19:52 21:00 23:00 Temperature 98.1 F Pulse Rate 98 89 96 Respiratory 24 20 22 Rate Blood Pressure 128/76 132/65 128/69 O2 Sat by Pulse 96 97 98 Oximetry Medical Decision Making - Medical Decision Making Is a 55-year-old female presents emergency department for worsening shortness of breath and was Coban positive for the patient was ambulated and did not have any episodes of desaturation. Patient was offered family member may have therapy and she accepted. I told the patient to use inhalers at home. Monitor her oxygen saturation started breathing at home and return probably if she has any worsening or changing symptoms or all questions were answered. Disposition Clinical Impression: COVID-19 Disposition: HOME SELF-CARE Condition: Stable Instructions (If sedation given, give patient instructions): Coronavirus Disease 2019 (COVID-19) Is patient prescribed a controlled substance at d/c from ED?: No Referrals: Meño Mcgarry DO [Primary Care Provider] - 1-2 days
--- NOTE | 2021-01-15 21:37 | XR ---
EXAMINATION TYPE: XR chest 1V portable DATE OF EXAM: 01/15/2021 COMPARISON: 10/12/2020. HISTORY: Shortness of breath. TECHNIQUE: Single frontal view of the chest is obtained. FINDINGS: There is a mild to moderate bibasilar hazy and streaky opacities. No pleural effusion, or pneumothorax seen. The cardiac silhouette size is within normal limits. The osseous structures are intact. IMPRESSION: Bibasilar opacities, concerning for infiltrates.
[2021-01-15] MEDS ORDERED: BAMLANIVIMAB 700 MG in SODIUM CHLORIDE 0.9% 50 ML IVPB ONE (21:45)
[2021-01-15] MEDS ORDERED: ALBUTEROL HFA INHALER INHALATION STA (23:38)
[2021-01-16 00:43] VITALS: BP 127/63; PULSE 98; RESP 20; TEMP 99.9
== END 2021-01-16 00:44 | disposition home or self-care (01) ==
LOC: EC 19:37
DX: U07.1 COVID-19 (principal); I25.2 Old myocardial infarction; Z79.899 Other long term (current) drug therapy; Z85.9 Personal history of malignant neoplasm, unspecified; Z96.651 Presence of right artificial knee joint
CPT/HCPCS: 94640; 71045; 99285; 96365; Q0239

== ENCOUNTER → 2021-05-23 | Outpatient (CLI) | payer OTHER ==
--- NOTE | 2021-05-23 14:10 | CT ---
EXAMINATION TYPE: CT sinus wo con DATE OF EXAM: 05/23/2021 COMPARISON: None HISTORY: Congestion and facial pain. CT DLP: 641.6 mGycm CONTRAST: None The paranasal sinuses are examined in the axial plane at 2 mm thick sections. Reconstructed images i n the coronal plane were obtained. There is dental amalgam scatter artifact The maxillary sinuses are clear. The ethmoid air cells are clear. The sphenoid sinuses are clear. The frontal sinuses are clear. The septum is evaluated. There is septal deviation to the left. The ostiomeatal units are patent. Hyperostosis frontalis internus is present, normal variant. IMPRESSIONS: 1. No acute paranasal sinus abnormality. 2. Left septal deviation.
== END | disposition home or self-care (01) ==
LOC: RADCTMAIN 13:40
PROVIDERS: ATTEND Otolaryngology
DX: J34.2 Deviated nasal septum (principal)
CPT/HCPCS: 70486

== ENCOUNTER → 2023-02-09 | Outpatient (CLI) | payer OTHER ==
[2023-02-09 16:18] LABS: ALT 42 U/L (8-44); AST 21 U/L (13-35); Chol/HDL Ratio 3.48 Ratio; LDL Cholesterol,Calculated 104.9 mg/dL (0.0-131.0); VLDL Calculation 16.88 mg/dL (5.00-40.00)
== END | disposition home or self-care (01) ==
LOC: LABWHC1 08:48
PROVIDERS: ATTEND Nurse Practitioner Family
DX: E78.2 Mixed hyperlipidemia (principal)
CPT/HCPCS: 36415; 80061; 84450; 84460

== ENCOUNTER 2023-04-22 10:06 | Day surgery (SDC) | payer OTHER ==
--- NOTE | 2023-04-20 12:38 | P.HPOR ---
History of Present Illness H&P Date: 04/20/23 Subjective: This is a 57 year old female that presents today for initial evaluation regarding a year long history of worsening right hand pain involving the thumb and ring finger. She states she has pain with pinch and grasp at the base of the thumb and is no longer doing the things shes used to do because of the pain at the base of the thumb. She also notes that the ring finger locks and catches and is painful and she cannot make a full fist. She denies any injury. She has tried anti-inflammatories with little relief. Physical Examination: RUE: AIN/PIN/Radial/Ulnar/Median motor intact. Radial/Ulnar/Median SILT. 2+/4 Radial/Ulnar pulses palpated. 5/5 APB, 5/5 FDI. Negative Finkelsteins, positive CMC grind, negative Durkan's compression. TTP over right ring finger A1 lacey. Locking and catching present of digit with flexion/extension. Imaging: X-Rays of the right hand, 3 view taken in the office today demonstrate moderate to severe right thumb CMC arthritis. Moderate arthritic changes at the distal radial ulnar joint. Impression: 1.) Right thumb CMC arthritis 2.) Right ring finger trigger finger Plan: Diagnosis and treatment options were discussed with the patient. We discussed continued conservative treatment with NSAIDs and bracing vs orthosis and possible steroid injection however she states her symptoms are not responding to anti-inflammatories and she is not interested in a any type of steroid injection and wishes to pursue surgery. I recommend thumb CMC basilar joint arthroplasty and right ring finger A1 lacey release. Risks and benefits of surgery including bleeding, infection, damage to surrounding tissue, need for further surgery, residual numbness were discussed and the patient wished to go forward with surgery. The patient was agreeable with this plan. CC: Meño Mcgarry D.O. -Grey Alonso DO Orthopedic Hand/Upper Extremity Surgeon Past Medical History Past Medical History: Coronary Artery Disease (CAD), Cancer, Diabetes Mellitus, Myocardial Infarction ([place]), Osteoarthritis (OA) Additional Past Medical History / Comment(s): Arthritis in knees, 2019 R breast cancer/surgery with radiation, NIDDM type II, Last Myocardial Infarction Date:: 2009 History of Any Multi-Drug Resistant Organisms: None Reported Past Surgical History: Appendectomy, Bladder Surgery, Cholecystectomy, Heart Catheterization With Stent, Hysterectomy, Joint Replacement, Orthopedic Surgery, Tubal Ligation, Uterine Ablation Additional Past Surgical History / Comment(s): chetna knee arthrocopy, bilateral knee replacements with R knee twice, 2 bladder surgeries, colonoscopy Past Anesthesia/Blood Transfusion Reactions: No Reported Reaction Additional Past Anesthesia/Blood Transfusion Reaction / Comment(s): Pt has never had blood transfusion. Date of Last Stent Placement:: 2009 Smoking Status: Former smoker - Past Family History Brother(s) History Unknown: Yes (Thyroid and hyperlipidemia) Family Medical History: Hyperlipidemia, Hypertension, Thyroid Disorder Sister(s) History Unknown: Yes Father Family Medical History: Cancer (Oral) Additional Family Medical History / Comment(s): MOUTH Mother Family Medical History: Cancer Additional Family Medical History / Comment(s): LUNG Medications and Allergies Home Medications Medication Instructions Recorded Confirmed Type Aspirin 81 mg PO HS #0 03/30/18 04/20/23 Rx Anastrozole [Arimidex] 1 mg PO HS 04/20/19 04/20/23 History sitaGLIPtin PHOS/metFORMIN HCL 1 tab PO QAM 04/20/23 04/20/23 History [Janumet Xr 100-1,000 mg Tablet] Allergies Allergy/AdvReac Type Severity Reaction Status Date / Time No Known Allergies Allergy Verified 04/20/23 09:47 Physical Examination Osteopathic Statement: *. No significant issues noted on an osteopathic structural exam other than those noted in the History and Physical/Consult.
[~2023-04-22 10:06] MED LIST changes: -DEXAMETHASONE SOD PHOSPHATE 10 MG/ML 1 ML VIAL IV ONE; +LIDOCAINE 1% (10MG/ML) FOR IV START INTRADERMA PRN; -LIDOCAINE 1% 20 ML VIAL (10MG/ML) FOR IV START INTRADERMA PRN; -ONDANSETRON 4 MG/2 ML VIAL IVP ONE; +Pre Op ABX Message 1 EACH MISC MISCELLANE ONE; -ceFAZolin IN SWFI 2 GM/20 ML SYRINGE IVP ONE
[2023-04-22] MEDS ORDERED: ONDANSETRON 4 MG/2 ML VIAL ONE (11:24)
[2023-04-22] MEDS ORDERED: ONDANSETRON 4 MG/2 ML VIAL IVP ONE (11:27)
[2023-04-22] MEDS ORDERED: DEXAMETHASONE SOD PHOSPHATE 4 MG/ML 1 ML VIAL IV ONE (11:28)
[2023-04-22 11:30] LABS: Glucose,Whole Blood 111 mg/dL (70-110)
[2023-04-22] MEDS ORDERED: fentaNYL (PF) 50 MCG/1 ML VIAL IVP ONE (12:05)
[2023-04-22] MEDS ORDERED: MIDAZOLAM 2 MG/2 ML VIAL IVP ONE (12:05)
[2023-04-22] MEDS ORDERED: PHENYLEPHRINE-0.9% NACL SYG 1,000 MCG/10 ML SYRINGE ONE (12:15)
[2023-04-22] MEDS ORDERED: LIDOCAINE 2% INJ 20 MG/ML (2 ML VIAL) ONE (12:15)
[2023-04-22] MEDS ORDERED: ROPIVACAINE 5 MG/ML 30 ML VIAL ONE (12:15)
[2023-04-22] MEDS ORDERED: SUCCINYLCHOLINE CHLORIDE 200 MG/10 ML VIAL IV ONE (12:15)
[2023-04-22] MEDS ORDERED: PROPOFOL 10 MG/ML 20 ML VIAL IV ONE (12:15)
[2023-04-22] MEDS ORDERED: SODIUM CHLORIDE 0.9% (PF) 10 ML VIAL ONE (12:15)
[2023-04-22] MEDS ORDERED: ePHEDrine 50 MG/ML 1 ML VIAL ONE (12:15)
[2023-04-22] MEDS ORDERED: SODIUM CHLORIDE 0.9% 100 ML BAG ONE (12:19)
[2023-04-22] MEDS ORDERED: ceFAZolin 1,000 MG VIAL ONE (12:19)
[2023-04-22] MEDS ORDERED: SODIUM CHLORIDE 0.9% 100 ML with ceFAZolin 2,000 MG IV ONE ×2 (12:19)
[2023-04-22] MEDS ORDERED: LACTATED RINGERS 1,000 ML IV ONE (13:03)
--- NOTE | 2023-04-22 13:37 | P.OP ---
Date of Procedure: 04/22/23 Preoperative Diagnosis: 1.) Right thumb CMC arthritis 2.) Right ring finger trigger finger Postoperative Diagnosis: 1.) Right thumb CMC arthritis 2.) Right ring finger trigger finger Procedure(s) Performed: 1.) Right thumb basilar joint arthroplasty 2.) Right ring finger A1 lacey release Implants: Arthrex 3.5mm Swivel Lock Suture anchor x2 Anesthesia: GETA, regional Surgeon: Grey Alonso Strip Machine Operator #1: Sundeep Vogel Estimated Blood Loss (ml): 0 Pathology: none sent Condition: stable Disposition: PACU Description of Procedure: This is a 57 year old female who presents today for a right thumb CMC basal joint arthroplasty and right ring finger A1 lacey release after having failed conservative treatment for severe thumb CMC arthritis and right ring finger trigger finger. Risks and benefits of surgery were discussed with the patient including bleeding, damage to surrounding tissue, infection, need for further surgery as well as risks of anesthesia including pulmonary embolism and even and the patient wished to proceed with surgical intervention. The patients was seen in the pre-operative area by myself. Consent and H&P were completed and updated. The correct extremity was marked in the pre-operative area by myself and all other questions were answered. Patient received a upper extremity nerve block by the department of anesthesia. He then was brought to the operating room by the department of anesthesia. They remained on the portable stretcher and a rolling hand table was brought to the side of the operative extremity. The patient was then drifted off to sleep by the department of anesthesia. A nonsterile tourniquet was then applied to the operative extremity and the right upper extremity was then prepped and draped in normal sterile fashion. Pre-operative time out was performed indicating the cor rect patient, procedure and laterality. All in the room agreed. Pre-operative antibiotics were given prior to skin incision. The operative extremity was the exsanguinated with an esmarch bandage and the tourniquet was inflated to 250mmHg. Oblique incision was made at the base of the right ring finger finger. Blunt dissection was taken down to the level of the A1 lacey. Ragnell retractors were placed both radially and ulnarly to protect neurovascular bundles. Littler tenotomy scissors were then used to release the A1 lacey from proximal to distal under direct visualization. Proximal fascial attachments were released. The tendon was then taken through range of motion and no locking or catching was appreciated. The wound was then closed with interrupted 4-0 nylon sutures in a horizontal mattress fashion. Longitudinal incision was made over the left thumb CMC joint with a 15 blade scalpel. Blunt dissection was taken down to subcutaneous tissues with littler scissors taking care to preserve the branches of the superficial radial nerve. Dorsal radial artery was identified proximally in the incision and protected throughout the procedure. Scalpel was then made to incise the thumb CMC joint creating full thickness flaps off of the proximal metacarpal base and trapezium, this plane was further developed with a periosteal elevator. Elevator was then utilized to identify the thumb CMC joint and scaphotrapezial joint. McGlamory elevator was then used to excise the trapezium whole. Guidewire was then introduced down to the laser line at the base of the first metacarpal through the same incision and was over drilled. Another guidewire was then inserted at the radial base of the first metacarpal near the Insertion of APL and was then over drilled with normal drill guide. A 3.5mm Arthrex SwiveLock anchor was then inserted into the base of the first metacarpal. While holding the thumb in slight traction and full adduction, another 3.5mm Arthrex SwiveLock anchor was inserted into the base of the second metacarpal and the two strands of fibertape were centered across the first metacarpal base to create a sling around the base suspending the thumb metacarpal, good nakul purchase was appreciated. The thumb was successfully suspended and full ROM was achieved passively. Suture ends were cut and skin was closed with several interrupted 4-0 Monocryl sutures followed by a running 4-0 Monocryl stitch. Sterile dressing consisting of mastisol and steri strips followed by 4x4s cast padding, and a thumb spica plaster splint was applied. Tourniquet was let down and the hand had brisk cap refill and normal perfusion immediately. The patient was then woken by the department of anesthesia and transferred to PACU in stable condition. Sundeep BARTON was present for the case and assisted in major portions of procedure and protection of vital neurovascular structures. Grey Alonso D.O. Orthopedic Hand/Upper Extremity Surgeon
[2023-04-22 14:13] VITALS: TEMP 97.9
[2023-04-22 14:25] VITALS: RESP 20
[2023-04-22 15:04] VITALS: BP 123/74; PULSE 78
--- NOTE | 2023-04-22 15:07 | P.ANPRN ---
Procedure Note - Anesthesia - Nerve Block Performed Right Axillary Single Time Out Performed: Yes (1204) Date of Procedure: 04/22/23 Procedure Start Time: 12:05 Procedure Stop Time: 12:09 Location of Patient: PreOp Indication: Acute Post-Operative Pain, Requested by Surgeon Specifically requested for management of pain by DrFadi: Grey Alonso Sedation Type: Sedate with meaningful contact maintained Preparation: Sterile Prep Position: Supine Catheter: None Needle Types: Pajunk Needle Gauge: 21 Ultrasound used to visualize needle placement: Yes Ultrasound used to observe medication spread: Yes Injectate: 0.5% Ropivacaine (see comment for volume) (30 cc + 10cc nacl pf (10cc at mskcut, ulnar, radial and median)) Blood Aspirated: No Pain Paresthesia on Injection Noted: No Resistance on Injection: Normal Image Stored and Saved: Yes Events: Uneventful and Well Tolerated
== END 2023-04-22 15:08 | disposition home or self-care (01) ==
LOC: OR 10:06
PROVIDERS: ATTEND Orthopaedic Surgery Hand Surgery
DX: M18.11 Unilateral primary osteoarthritis of first carpometacarpal joint, right hand (principal); M65.341 Trigger finger, right ring finger; G89.18 Other acute postprocedural pain; I25.10 Atherosclerotic heart disease of native coronary artery without angina pectoris; E11.9 Type 2 diabetes mellitus without complications; I25.2 Old myocardial infarction; Z90.49 Acquired absence of other specified parts of digestive tract; Z95.5 Presence of coronary angioplasty implant and graft; Z90.710 Acquired absence of both cervix and uterus; Z98.51 Tubal ligation status; Z87.891 Personal history of nicotine dependence; Z82.49 Family history of ischemic heart disease and other diseases of the circulatory system; Z83.49 Family history of other endocrine, nutritional and metabolic diseases; Z79.82 Long term (current) use of aspirin; Z79.899 Other long term (current) drug therapy
CPT/HCPCS: 64415; 25447; 26055; C1713; J2250; J0330; J1100; J2405; J0690; J2795; J2370; J2704; J2001; J3010

== ENCOUNTER → 2023-05-08 | Outpatient (CLI) | payer OTHER ==
[2023-05-08 15:37] LABS: HCT 39.3 % (37.2-46.3); HGB 12.5 d/dL (12.0-15.0); MCH 27.1 pg (27.0-32.0); MCHC 31.8 d/dL (32.0-37.0); MCV 85.2 FL (80.0-97.0); Mean Platelet Volume 10.3 FL (9.5-12.2); NRBC Per 100 WBC 0 X 10*3/uL (0.00-0.01); Platelet Count 233 X 10*3/uL (140-440); RBC 4.61 X 10*6/uL (4.10-5.20); RDW 13.7 % (11.5-14.5); WBC 6.97 X 10*3/uL (4.50-10.00)
[2023-05-08 15:43] LABS: Blood Urea Nitrogen 11.4 mg/dL (9.0-27.0); Calcium 9.4 mg/dL (8.7-10.3); Carbon Dioxide 25.3 mmol/L (21.6-31.8); Chloride 104 mmol/L (96-109); Glucose 135 mg/dL (70-110); Potassium 4.3 mmol/L (3.5-5.5); Sodium 140 mmol/L (135-145)
== END | disposition home or self-care (01) ==
LOC: LABWHC1 11:33
PROVIDERS: ATTEND Family Medicine
DX: M79.661 Pain in right lower leg (principal); R60.0 Localized edema
CPT/HCPCS: 36415; 80048; 85027; 85379

== ENCOUNTER → 2023-06-08 | Outpatient (CLI) | payer OTHER ==
--- NOTE | 2023-06-08 17:14 | US ---
EXAMINATION TYPE: US venous doppler duplex LE DATE OF EXAM: 06/08/2023 4:48 PM COMPARISON: US 2018 CLINICAL INDICATION: Female, 57 years old with history of R79.1 ABNORMAL COAGULATION PROFILE; Elevate d D dimer SIDE PERFORMED: Bilateral TECHNIQUE: The lower extremity deep venous system is examined utilizing real time linear array sonog marium with graded compression, doppler sonography and color-flow sonography. VESSELS IMAGED: Common Femoral Vein Deep Femoral Vein Greater Saphenous Vein * Femoral Vein Popliteal Vein Small Saphenous Vein * Proximal Calf Veins (* superficial vessels) Right Leg: Appears negative for DVT Left Leg: Appears negative for DVT IMPRESSION: Grayscale, color doppler, spectral doppler imaging performed of the deep veins of the lo wer extremities. There is normal flow, compressibility, vascular waveforms.
== END | disposition home or self-care (01) ==
LOC: RADUSWWP 16:18
PROVIDERS: ATTEND Family Medicine
DX: R79.1 Abnormal coagulation profile (principal)
CPT/HCPCS: 93970

== ENCOUNTER → 2023-07-13 | Outpatient (CLI) | payer OTHER ==
--- NOTE | 2023-07-13 10:12 | XR ---
EXAMINATION TYPE: XR chest 2V DATE OF EXAM: 07/13/2023 COMPARISON: 01/15/2021 HISTORY: Shortness of breath TECHNIQUE: Frontal and lateral views of the chest are obtained. FINDINGS: Scattered senescent parenchymal changes noted. Hyperinflation compatible with COPD. No evidence for infiltrate. No evidence for atelectasis. Heart size is stable. Mediastinal structures are stable and grossly unremarkable. No evidence for hilar prominence. Degenerative changes dorsal spine. IMPRESSION: 1. No evidence for acute pulmonary disease.
== END | disposition home or self-care (01) ==
LOC: RADXRMAIN 09:26
PROVIDERS: ATTEND Family Medicine
DX: R06.02 Shortness of breath (principal); Z87.891 Personal history of nicotine dependence
CPT/HCPCS: 71046

== ENCOUNTER → 2024-07-12 | Outpatient (CLI) | payer OTHER ==
[2024-07-12 15:32] LABS: HCT 42.1 % (37.2-46.3); HGB 13.3 g/dL (12.0-15.0); MCH 27.1 pg (27.0-32.0); MCHC 31.6 g/dL (32.0-37.0); MCV 85.7 FL (80.0-97.0); Mean Platelet Volume 10.8 FL (9.5-12.2); NRBC Per 100 WBC 0 X 10*3/uL (0.00-0.01); Platelet Count 224 X 10*3/uL (140-440); RBC 4.91 X 10*6/uL (4.10-5.20); RDW 13.3 % (11.5-14.5); WBC 6.36 X 10*3/uL (4.50-10.00)
[2024-07-12 15:40] LABS: ALT 28 U/L (8-44); AST 20 U/L (13-35); Blood Urea Nitrogen 8.4 mg/dL (9.0-27.0); Calcium 9.6 mg/dL (8.7-10.3); Carbon Dioxide 26.9 mmol/L (21.6-31.8); Chloride 98 mmol/L (96-109); Chol/HDL Ratio 3.57 Ratio; Glucose 321 mg/dL (70-110); LDL Cholesterol,Calculated 116.4 mg/dL (0.0-131.0); Potassium 4.5 mmol/L (3.5-5.5); Sodium 136 mmol/L (135-145)
== END | disposition home or self-care (01) ==
LOC: LABWHC1 09:33
PROVIDERS: ATTEND Internal Medicine Cardiovascular Disease
DX: E78.2 Mixed hyperlipidemia (principal)
CPT/HCPCS: 36415; 80048; 80061; 84450; 84460; 85027

== ENCOUNTER 2024-07-13 10:21 | Day surgery (SDC) | payer OTHER ==
[~2024-07-13 10:21] MED LIST changes: +ALPRAZolam 0.25 MG TAB PO PRN; -LACTATED RINGERS 1,000 ML IV SCH; -LIDOCAINE 1% (10MG/ML) FOR IV START INTRADERMA PRN; +NITROGLYCERIN SL TABS 0.4 MG TAB SUBLINGUAL PRN; -Pre Op ABX Message 1 EACH MISC MISCELLANE ONE
[2024-07-13] MEDS: SODIUM CHLORIDE 0.9% 1,000 ML in EMPTY BAG 1 BAG IV SCH (10:47)
[2024-07-13] MEDS: ALPRAZolam 0.5 MG TAB PO PRN (10:47)
[2024-07-13] MEDS: ASPIRIN 325 MG TAB PO STA (10:47)
[2024-07-13] MEDS: IV FLUID CONTINUATION 1,000 ML IV ONE (10:50)
[2024-07-13 10:54] LABS: Glucose,Whole Blood 291 mg/dL (70-110)
[2024-07-13 10:59] LABS: Basophils # (A) 0.1 k/uL (0-0.2); Basophils % (A) 1 %; Eosinophils # (A) 0.2 k/uL (0-0.7); Eosinophils % (A) 2 %; HCT 40.5 % (34.0-46.0); Lymphocytes # (A) 1.8 k/uL (1.0-4.8); Lymphocytes % (A) 25 %; MCH 27.3 pg (25.0-35.0); MCHC 32.1 g/dL (31.0-37.0); MCV 85.1 fL (80.0-100.0); Mean Platelet Volume 8.7; Monocytes # (A) 0.3 k/uL (0-1.0); Monocytes % (A) 4 %; Neutrophils # (A) 4.9 k/uL (1.3-7.7); Neutrophils % (A) 68 %; Platelet Count 239 k/uL (150-450); RBC 4.76 m/uL (3.80-5.40); RDW 13.6 % (11.5-15.5); WBC 7.2 k/uL (3.8-10.6)
[2024-07-13] MEDS: INSULIN ASPART (NovoLOG) 100 UNIT/ML VIAL SQ ONE (11:17)
[2024-07-13 11:18] LABS: African American GFR (CKD) >90 (>60 ml/min/1.73 sqM); Anion Gap 10 mmol/L; Blood Urea Nitrogen 12 mg/dL (7-17); Calcium 9.2 mg/dL (8.4-10.2); Carbon Dioxide 25 mmol/L (22-30); Chloride 99 mmol/L (98-107); Glucose 296 mg/dL (74-99); Non-African American GFR(CKD) >90 (>60 ml/min/1.73 sqM); Sodium 134 mmol/L (137-145)
[2024-07-13] MEDS: fentaNYL (PF) 50 MCG/ML 2 ML AMP IVP ONE ×2 (12:03→12:32)
[2024-07-13] MEDS: MIDAZOLAM 2 MG/2 ML VIAL IVP ONE ×2 (12:03→12:32)
[2024-07-13] MEDS: LIDOCAINE 1% INJ 10MG/ML (20 ML MDV) SQ ONE (12:06)
[2024-07-13] MEDS: VERAPAMIL SYRINGE (5 MG/10 ML) INTRAARTER ONE (12:10)
[2024-07-13] MEDS: HEPARIN SODIUM,PORCINE 10,000 UNIT in SODIUM CHLORIDE 0.9% 1,000 ML IRRIGATION ONE (12:10)
[2024-07-13] MEDS: HEPARIN SODIUM 1,000 UN/ML (10ML VL) IVP ONE ×7 (12:12→13:14)
[2024-07-13] MEDS: HEPARIN SODIUM,PORCINE (1 ML) 2,500 UNIT in SODIUM CHLORIDE 0.9% 250 ML IRRIGATION ONE (12:12)
[2024-07-13] MEDS: TICAGRELOR 90 MG TAB PO ONE (12:29)
[2024-07-13] MEDS: IOPAMIDOL-370 100ML BTL INJ ONE ×2 (12:53→13:15)
--- NOTE | 2024-07-13 13:15 | P.PRCINT ---
Percutaneous Coronary Int. - Percutaneous Coronary Intervention Percutaneous Coronary Intervention: PROCEDURES PERFORMED: Right coronary angiography, PCI RCA with a 3.0 x 48mm Xience NAHUM, post dilated with a 3.5mm NC balloon, IVUS RCA INDICATION: unstable angina CONSENT:I have discussed the risks, benefits and alternative therapies for the above-mentioned procedure and for both sedation/analgesia as well as necessary blood product administration, if indicated, as they pertain to this patient. The patient has indicated understanding and acceptance of the risks and procedures discussed. PROCEDURE: After the risks, benefits and alternatives of the above mentioned procedure explained in detail with the patient, informed consent was obtained. Patient had been taken to the catheterization lab and prepped and draped in usual fashion. A 6-Kenyan sheath had previously been placed in the right radial artery. Diagnostic images showed a 95% RCA stenosis with what appeared to be thrombus consistent with unstable angina and culprit lesion. Therefore decision was made to perform PCI of the RCA. A 6-Kenyan AL 0.75 guide was used to engage RCA. A 0.014 BMW wire was advanced in the distal RCA. Predilation was performed with a 2.5 mm balloon. Intravascular ultrasound was performed which showed diffuse p laque with reference vessel 3.0-3.5mm. Initially a 3.0 x 38 mm Xience NAHUM was advanced however did not cover the entire lesion and therefore this was exchanged for a 3.0 x 48 mm Xience NAHUM which was deployed from the mid to distal RCA. intravascular ultrasound was performed which showed some underexpansion. The stent was postdilated with a 3.5 mm noncompliant balloon.repeat intravascular ultrasound was performed after post-dilation which showed excellent stent apposition with no dissection. Final angiograms were performed. Prevention there is 95% stenosis and ELVIE-3 flow and postintervention there was 0% stenosis with ELVIE 3 flow. The right radial sheath was removed and a TR band was placed with hemostasis achieved. The patient tolerated the procedure well. Patient was transported ba to the post catheterization holding area in stable condition. Conscious Sedation: Patient was monitored under the direct supervision of myself for conscious sedation using Versed and fentanyl for a total duration of 32 minutes HEMODYNAMICS: Ao: 129/81 SELECTIVE CORONARY ARTERIOGRAPHY: LEFT MAIN: Not imaged, see separate report LEFT ANTERIOR DESCENDING CORONARY ARTERY: Not imaged, see separate report LEFT CIRCUMFLEX CORONARY ARTERY: Not imaged, see separate report RIGHT CORONARY ARTERY: The right coronary artery is a large caliber vessel which gives off a PDA and PLV branch and is the dominant vessel. There is mild luminal irregularities of the proximal to mid RCA with a long lesion of mid to distal RCA stenosis with more focal 95% stenosis. FINAL IMPRESSION: 1. CAD as described above including 95% mid to distal RCA stenosis 2. S/p PCI RCA with a 3.0 x 48mm Xience NAHUM, post dilated with a 3.5mm NC balloon PLAN: 1. Aggressive risk factor modification per most recent ACC/AHA guidelines. 2. Continue dual antiplatelets with aspirin and Brillinta for 12 months given unstable angina. 3. If continues to have angina, consider functional assessment of circumflex lesion.
--- NOTE | 2024-07-13 14:30 | CC ---
CARDIAC CATHETERIZATION REPORT INDICATION: Unstable angina in a patient with known coronary artery disease, status post prior angioplasty with stent placement of LAD. PROCEDURE NOTE: After obtaining informed consent, left heart catheterization and coronary angiogram were performed via the right radial artery using standard Luther catheters. The patient tolerated the procedure well without any obvious immediate complications. The patient received moderate conscious sedation. Total sedation time was 15 minutes. Right radial artery access was obtained using Seldinger technique, 6-Bengali sheath was placed. Catheters and wires were floated into the ascending aorta under fluoroscopic guidance. The patient received verapamil and heparin per protocol. FINDINGS: 1. Hemodynamics: Left ventricular end-diastolic pressure is 18 mm. There is no significant gradient across the aortic valve. 2. Left ventriculogram: Left ventriculogram is not performed. 3. Angiographic data: a.Right coronary artery: Right coronary artery is a large dominant vessel that shows a long segment of stenosis involving mid to distal right coronary artery, at its worst, there is a 95% stenosis. Left main coronary artery is a normal- sized vessel and is free of stenosis, divides into left anterior descending coronary artery and circumflex coronary artery. Circumflex coronary artery is a nondominant vessel and shows a focal 60% to 70% stenosis in the proximal portion. LAD was previously stented in the proximal portion and the stent itself appears patent. There is a diagonal branch that is coming off the stent that shows a 50% to 60% stenosis proximally. CONCLUSION: Severe stenosis involving right coronary artery, which is probably responsible for the patient's symptoms, 70% stenosis involved in circumflex coronary artery and patent stent in the LAD. PLAN: The patient will undergo angioplasty of the right coronary artery by Dr. Argueta, the available slag expander. MMODL / IJN: [id number] /
[2024-07-13] MEDS ORDERED: NITROGLYCERIN SL TABS 0.4 MG TAB SUBLINGUAL PRN (14:41)
[2024-07-13] MEDS ORDERED: MAG HYDROX/AL HYDROX/SIMETH 30 ML CUP PO PRN (14:45)
[2024-07-13] MEDS ORDERED: RX INFO: IV CONTRAST WAS GIVEN 1 EACH MISC MISCELLANE PRN (14:45)
[2024-07-13] MEDS ORDERED: ZOLPIDEM 5 MG TAB PO PRN (14:45)
[2024-07-13] MEDS ORDERED: ATROPINE SULFATE 0.1 MG/ML 10ML SYRINGE IV PRN (14:45)
[2024-07-13 15:01] LABS: Glucose,Whole Blood 323 mg/dL (70-110)
[2024-07-13] MEDS ORDERED: DEXTROSE 50% SYRINGE 50 ML IVP PRN ×4 (16:02→16:08)
[2024-07-13] MEDS: HYDROmorphone 0.5 MG/0.5 ML SYRINGE IVP STA (16:13)
[2024-07-13] MEDS: INSULIN ASPART (NovoLOG) 100 UNIT/ML VIAL SQ SCH (16:22)
[2024-07-13 17:20] LABS: Glucose,Whole Blood 263 mg/dL (70-110)
[2024-07-13 20:10] LABS: Glucose,Whole Blood 302 mg/dL (70-110)
[2024-07-13] MEDS: ATORVASTATIN 40 MG TAB PO SCH (20:45)
[2024-07-13] MEDS: TICAGRELOR 90 MG TAB PO SCH (20:45)
[2024-07-14 02:18] VITALS: RESP 16
[2024-07-14 06:05] LABS: Glucose,Whole Blood 280 mg/dL (70-110)
[2024-07-14 07:21] LABS: African American GFR (CKD) >90 (>60 ml/min/1.73 sqM); Non-African American GFR(CKD) >90 (>60 ml/min/1.73 sqM)
[2024-07-14] MEDS: ANASTROZOLE 1 MG TAB PO SCH (07:58)
[2024-07-14] MEDS: METOPROLOL SUCCINATE (ER) 25 MG TAB.ER.24H PO SCH (07:58)
[2024-07-14] MEDS: ASPIRIN 81 MG PO SCH (07:59)
[2024-07-14] MEDS: LOSARTAN 25 MG TAB PO SCH (07:59)
[2024-07-14] MEDS: ISOSORBIDE MONONITRATE ER 30 MG TAB.ER.24H PO SCH (07:59)
[2024-07-14 11:04] LABS: Glucose,Whole Blood 315 mg/dL (70-110)
[2024-07-14] MEDS: IV FLUID CONTINUATION 1,000 ML IV ONE (14:34)
[2024-07-14] MEDS: fentaNYL (PF) 50 MCG/ML 2 ML AMP IVP ONE (14:34)
[2024-07-14] MEDS: MIDAZOLAM 2 MG/2 ML VIAL IVP ONE ×2 (14:34→14:42)
[2024-07-14] MEDS: HEPARIN SODIUM,PORCINE 10,000 UNIT in SODIUM CHLORIDE 0.9% 1,000 ML IRRIGATION PRN (14:35)
[2024-07-14] MEDS: HEPARIN SODIUM,PORCINE (1 ML) 2,500 UNIT in SODIUM CHLORIDE 0.9% 250 ML IRRIGATION PRN (14:35)
--- NOTE | 2024-07-14 14:37 | P.PN ---
Progress Note - Text patient was scheduled for discharge however started to develop chest pain which she initially said was similar to her angina-type symptoms that she has been having over the prior week. Initially during intervention she had minimal amount of discomfort and at the end of the case had no discomfort. EKG did not show any significant ST changes. She has had off-and-on chest pain throughout the day and night. Discussed options including continue to monitor, further testing, discharged home with outpatient follow-up or more definitive evaluation. Given symptoms similar to her prior angina discussed definitive evaluation to rule out any issues with her recently placed stent as well as to further evaluate degree of stenosis of the circumflex lesion. Patient and daughter understanding and willing to proceed with left heart catheterization.
[2024-07-14] MEDS: LIDOCAINE 1% INJ 10MG/ML (20 ML MDV) SQ ONE (14:40)
[2024-07-14] MEDS: VERAPAMIL SYRINGE (5 MG/10 ML) INTRAARTER ONE (14:41)
[2024-07-14] MEDS: HEPARIN SODIUM 1,000 UN/ML (10ML VL) IV ONE (14:43)
[2024-07-14 15:02] VITALS: BMI 41.5
[2024-07-14] MEDS: IOPAMIDOL-370 100ML BTL INJ ONE (15:05)
[2024-07-14] MEDS ORDERED: RX INFO: IV CONTRAST WAS GIVEN 1 EACH MISC MISCELLANE PRN (15:10)
--- NOTE | 2024-07-14 15:12 | P.CARDCATH ---
Description of Procedure: PROCEDURES PERFORMED: Bilateral coronary angiography, ultrasound guided arterial access, iFR OM1, circumflex, LAD INDICATION: CAD, unstable angina, s/p recent stent RCA CONSENT:I have discussed the risks, benefits and alternative therapies for the above-mentioned procedure and for both sedation/analgesia as well as necessary blood product administration, if indicated, as they pertain to this patient. The patient has indicated understanding and acceptance of the risks and procedures discussed. PROCEDURE: After the risks, benefits and alternatives of the above mentioned procedure explained in detail with the patient, informed consent was obtained. Patient was taken to the catheterization lab and prepped and draped in usual fashion. Ultrasound guidance was used to assess for arterial access. 1% lidocaine was used to anesthetize the right radial artery. A 6-Samoan sheath was placed in the right radial artery using modified Seldinger technique and ultrasound guidance. Left coronary angiography was performed with a 6-Samoan CLS 3.5 catheter and right coronary angiography was performed with a 5-Samoan FR5 catheter in various views. The decision was made to perform functional assessment the circumflex, OM1 and LAD. Heparin was given. Using a 6-Samoan CLS 3.5 guide, a 0.014 pressure wire was advanced the left main and normalize. Was then advanced 1 cm distal to the circumflex lesion, the ostial OM1 lesion, and a mid LAD lesion and RFR (iFR) was normal at 0.99 0.93 and 0.99 respectively. The right radial sheath was removed and a TR band was placed with hemostasis achieved. The patient tolerated the procedure well. Patient was transported back to the post catheterization holding area in stable condition. Conscious Sedation: Patient was monitored under the direct supervision of myself for conscious sedation using Versed and fentanyl for a total duration of 25 minutes HEMODYNAMICS: Ao: 148/69 SELECTIVE CORONARY ARTERIOGRAPHY: LEFT MAIN: The left main is a large caliber vessel which bifurcates into the LAD and circumflex. There is no significant stenosis. LEFT ANTERIOR DESCENDING CORONARY ARTERY: LAD is a large caliber vessel which wraps around to the apex. There is proximal LAD stent which is patent with 50% jailing of the diagonal 1 branch. there is a mid LAD 40-50% stenosis just after the proximal LAD stent. LEFT CIRCUMFLEX CORONARY ARTERY: Left circumflex is a moderate caliber vessel with a proximal 50-60% stenosis. OM1 is nearly a ramus and small caliber and has a ostial 60-70% stenosis otherwise there are mild luminal irregularities.. RIGHT CORONARY ARTERY: The right coronary artery is a large caliber vessel which gives off a PDA and PLV branch and is the dominant vessel. There is a patent mid to distal RCA stent and otherwise mild 20-30% proximal and mid RCA stenosis. FINAL IMPRESSION: 1. CAD as described above including patent proximal LAD stent, 50% jailed diagonal 1 branch, mid LAD 40-50% stenosis, proximal circumflex 50-60% stenosis, small caliber OM1 ostial 60-70% stenosis and patent mid to distal RCA stent. 2. RFR (iFR) normal of circumflex, OM1, LAD PLAN: 1. Aggressive risk factor modification per most recent ACC/AHA guidelines. 2. Continue with current medical therapy.
[2024-07-14] MEDS: ASPIRIN 325 MG TAB PO STA (15:19)
[2024-07-14] MEDS: ATORVASTATIN 80 MG TAB PO STA (15:19)
--- NOTE | 2024-07-14 15:24 | P.DS ---
Providers Attending physician: Mauricio Siddiqui Consults: 07/13/24 14:45 Consult Physician Routine Consulting Provider: [facility] Consult Reason/Comments: Post Interventional patient Do you want consulting provider notified?: Already Contacted Primary care physician: Meño [place] Hospital Course: patient is a pleasant 58-year-old female with history of CAD with prior PCI of LAD approximate 14 years ago who developed chest pain worse with exertion over the past one week on an outpatient basis and therefore was recommended to undergo heart catheterization for unstable angina. Diagnostic study showed 95% mid to distal RCA stenosis and she underwent successful stenting from a right radial approach. A few hours later she developed some substernal chest pain. EKG did not show any significant changes. She still had intermittent episodes of chest discomfort which felt somewhat similar to her prior angina. Therefore discussed repeat heart catheterization as well as to assess a borderline circumflex lesion. Repeat heart catheterization was performed on 07/14 which showed patent RCA stent and more 50-60% circumflex with iFR of the circumflex, OM1 and LAD normal. She did not have any recurrent chest pain and therefore was recommended for discharge home on aspirin and Brillinta with outpatient follow- up in 1 week. Plan - Discharge Summary New Discharge Prescriptions: New Ticagrelor [Brilinta] 90 mg PO BID #60 tablet Losartan [Cozaar] 25 mg PO DAILY #0 tab Continue sitaGLIPtin PHOS/metFORMIN HCL [Janumet Xr 100-1,000 mg Tablet] 1 tab PO DAILY Metoprolol Succinate (ER) [Toprol XL] 12.5 mg PO DAILY Atorvastatin [Lipitor] 40 mg PO HS Isosorbide Mononitrate ER [Imdur] 30 mg PO DAILY Aspirin 81 mg PO DAILY Anastrozole [Arimidex] 1 mg PO DAILY Nitroglycerin 0.4 mg SL Q5M PRN PRN Reason: Chest Pain Discharge Medication List sitaGLIPtin PHOS/metFORMIN HCL [Janumet Xr 100-1,000 mg Tablet] 1 tab PO DAILY 04/20/23 [History] Anastrozole [Arimidex] 1 mg PO DAILY 07/13/24 [History] Aspirin 81 mg PO DAILY 07/13/24 [History] Atorvastatin [Lipitor] 40 mg PO HS 07/13/24 [History] Isosorbide Mononitrate ER [Imdur] 30 mg PO DAILY 07/13/24 [History] Losartan [Cozaar] 25 mg PO DAILY #0 tab 07/13/24 [Rx] Metoprolol Succinate (ER) [Toprol XL] 12.5 mg PO DAILY 07/13/24 [History] Nitroglycerin 0.4 mg SL Q5M PRN 07/13/24 [History] Ticagrelor [Brilinta] 90 mg PO BID #60 tablet 07/13/24 [Rx] Follow up Appointment(s)/Referral(s): Mauricio Siddiqui MD [STAFF PHYSICIAN] - 07/20/24 3:30 pm Patient Instructions/Handouts: Losartan (By mouth), Moderate Sedation (DC), Coronary Intravascular Stent Placement (DC), After Radial Heart Catheterization (GEN) Activity/Diet/Wound Care/Special Instructions: No lifting/pushing/pulling greater than 5 lbs for 5 days with right arm. Remove dressing from right wrist tomorrow (about noon). No need to re-dress. You may shower tomorrow after dressing removal. No prolonged soaking of puncture site for 3 days (such as swim or tub). You may drive Thursday. HOLD JANUMET FOR 48 HOURS.
[2024-07-14 17:16] LABS: Glucose,Whole Blood 240 mg/dL (70-110)
[2024-07-14 17:47] VITALS: BP 117/70; PULSE 76; TEMP 97.4
== END 2024-07-14 18:51 | disposition home or self-care (01) ==
LOC: CATHCVL 10:21 → 6NMEDSUR 13:02 → CATHCVL 07-14 18:51
PROVIDERS: ATTEND Internal Medicine Cardiovascular Disease
DX: I25.110 Atherosclerotic heart disease of native coronary artery with unstable angina pectoris (principal); Z79.02 Long term (current) use of antithrombotics/antiplatelets; Z79.811 Long term (current) use of aromatase inhibitors; Z79.82 Long term (current) use of aspirin; Z79.899 Other long term (current) drug therapy
CPT/HCPCS: 80048; 82565; 83036; 85025; 92978; 93005; 93454; 93458; 93799